=== PATIENT | male | born 1960 | race Caucasian/White ===

== ENCOUNTER 2017-04-03 19:25 | Emergency (ER) | payer OTHER ==
[~2017-04-03] VITALS: Ht 182.9 cm; Wt 93.0 kg
[2017-04-03] MEDS ORDERED: COZAAR 25 MG TA25 MG PO (19:46)
[2017-04-03] MEDS ORDERED: LOSARTAN-HCTZ1 EAC1 PO (19:47)
[2017-04-03 23:22] VITALS: BP 143/83
== END 2017-04-03 23:24 | disposition home or self-care (01) ==
LOC: ER 19:25
DX: M54.2 Cervicalgia (principal); I25.10 Atherosclerotic heart disease of native coronary artery without angina pectoris; I10 Essential (primary) hypertension; F10.99 Alcohol use, unspecified with unspecified alcohol-induced disorder; V43.52XA Car driver injured in collision with other type car in traffic accident, initial encounter; Y93.I9 Activity, other involving external motion; Y92.488 Other paved roadways as the place of occurrence of the external cause; Y99.8 Other external cause status